=== PATIENT | female | born 1960 | race Caucasian/White ===

== ENCOUNTER → 2016-12-02 | Outpatient (CLI) | payer OTHER ==
[~2016-12-02] MED LIST: ADVAIR 250-501 EACH INH; B-100 COMPLEX1 EAC1 PO; BUPROPION HCL200 MG PO; CLARITIN10 M2 PO; CLONAZEPAM 1 MG1 M1 PO; CYCLOBENZAPRINE10 MG PO; DIOVAN HCT 1601 EAC1 PO; GLUCOSAMINE-CH1 EA37 PO; HYDROCODON-ACE1 EAC7 PO; LANSOPRAZOLE30 MG PO; LEVOTHROID PO; MUCINEX600 MG PO; MULTIVITAMINS PO; NAPROSYN500 MG PO; OMNARIS; PROAIR HFA8.5 GM INH; PROTONIX40 M2 PO; PROZAC PO; SINGULAIR 10 MG10 M1 PO; SINGULAIR PO; SUPER B-COMPLE1 EAC2 PO; TRICOR145 MG PO; TRIPLE ANTIBIO3.5 G2 TD; VALACYCLOVIR500 MG PO; ZOLPIDEM TART12.5 MG PO; [UNRECOGNIZED DRUG - OTHER] IH
== END ==
LOC: RAD 13:44
DX: R92.8 Other abnormal and inconclusive findings on diagnostic imaging of breast (principal); Z85.3 Personal history of malignant neoplasm of breast; Z98.890 Other specified postprocedural states

== ENCOUNTER → 2017-12-07 | Outpatient (CLI) | payer OTHER | LOC: RAD 01:18 | DX: C50.911 Malignant neoplasm of unspecified site of right female breast (principal); N63.21 Unspecified lump in the left breast, upper outer quadrant; R92.2 Inconclusive mammogram; I10 Essential (primary) hypertension ==

== ENCOUNTER → 2018-06-29 | Outpatient (CLI) | payer OTHER | LOC: RAD 02:04 | DX: N63.42 Unspecified lump in left breast, subareolar (principal); C50.911 Malignant neoplasm of unspecified site of right female breast ==

== ENCOUNTER → 2019-06-21 | Outpatient (CLI) | payer OTHER | LOC: RAD 06-20 13:20 | DX: N64.89 Other specified disorders of breast (principal); Z85.3 Personal history of malignant neoplasm of breast ==

== ENCOUNTER → 2020-11-07 | Outpatient (CLI) | payer OTHER | LOC: BC 11-06 13:50 → ULTRA 10:13 | PROVIDERS: ATTEND Internal Medicine Hematology & Oncology | DX: Z12.31 Encounter for screening mammogram for malignant neoplasm of breast (principal); N64.89 Other specified disorders of breast ==